=== PATIENT | male | born 1940 | race Caucasian/White ===

== ENCOUNTER 2018-08-12 06:55 | Day surgery (SDC) | payer OTHER ==
[2018-08-12] MEDS ORDERED: PROPOFOL 500 MG/50 ML EMU IV ONE (08:01)
[2018-08-12] MEDS ORDERED: LIDOCAINE HCL 1% MPF 30 SOL ONE (08:01)
[2018-08-12 09:11] VITALS: TEMP 97.3
[2018-08-12 09:23] VITALS: RESP 20
[2018-08-12 09:31] VITALS: BP 146/76; PULSE 70; O2SAT 96
[2018-08-12 11:32] LABS: PATHOLOGY SPEC OR BIOPSY REFER MAYO/MKTO PATH
== END 2018-08-12 09:38 | disposition home or self-care (01) | DRG 951 ==
LOC: SURG 06:55
PROVIDERS: ATTEND Internal Medicine Gastroenterology
DX: Z12.11 Encounter for screening for malignant neoplasm of colon (principal); K57.32 Diverticulitis of large intestine without perforation or abscess without bleeding; Z86.010 Personal history of colon polyps; K64.4 Residual hemorrhoidal skin tags; K63.9 Disease of intestine, unspecified; D12.3 Benign neoplasm of transverse colon; K63.5 Polyp of colon; K64.8 Other hemorrhoids
CPT/HCPCS: J2001; J2704

== ENCOUNTER 2018-09-28 08:24 | Emergency (ER) | payer OTHER ==
[2018-09-28] MEDS ORDERED: MORPHINE SULFATE 10 MG/ML SOL IV PRN (08:36)
[2018-09-28] MEDS ORDERED: ASPIRIN 81 MG CHEWABLE CTB PO STA (08:36)
[2018-09-28] MEDS ORDERED: SODIUM CHLORIDE 0.9% FLUSH 10 ML SOL IV PRN (08:36)
[2018-09-28] MEDS: NITROGLYCERIN 0.4 MG TAB SL PRN ×2 (08:41→09:24)
[2018-09-28] MEDS ORDERED: NITROGLYCERIN 0.4 MG TAB SL ONE (08:46)
[2018-09-28] MEDS ORDERED: ASPIRIN 81 MG CHEWABLE CTB ONE (08:46)
[2018-09-28 08:48] LABS: BASOPHILS % (AUTO) 1 % (0-3); EOSINOPHILS % (AUTO) 5 % (0-9); HEMATOCRIT 54 % (39-53); HEMOGLOBIN 17.3 gm/dl (13.5-17.7); LYMPHOCYTES % (AUTO) 25.7 % (10-50); MEAN CORPUSCULAR HEMOGLOBIN 30.6 pg (27.0-32.0); MEAN CORPUSCULAR HGB CONC 32.2 gm/dl (32.0-36.0); MEAN CORPUSCULAR VOLUME 95 fL (80-100); MONOCYTES % (AUTO) 6.7 % (0-12)
[2018-09-28 08:58] VITALS: TEMP 97.6
[2018-09-28 08:59] LABS: INR 1.02 (0.86-1.12)
[2018-09-28 09:05] LABS: CALCIUM 8.8 mg/dl (8.5-10.1); CARBON DIOXIDE 25.2 mEq/L (21-32); CREATININE 1.04 mg/dl (0.80-1.30); POTASSIUM 4.2 mMol/L (3.5-5.1); TROP I 0.054 ng/ml (0.000-0.056)
[2018-09-28 14:15] VITALS: BP 136/85; PULSE 48; RESP 15; O2SAT 96
== END 2018-09-28 11:20 | disposition home or self-care (01) | DRG 313 ==
LOC: ED 08:24
DX: R07.9 Chest pain, unspecified (principal)
CPT/HCPCS: 71045; 71260; 80048; 82550; 83880; 84484; 85025; 85378; 85610; 85730; 93005; 96365; 96374; 99282; 99285; Q9967; A9270-GY

== ENCOUNTER 2018-09-29 16:19 | Emergency (ER) | payer OTHER ==
[2018-09-29] MEDS ORDERED: ASPIRIN 81 MG CHEWABLE CTB ONE (16:23)
[2018-09-29] MEDS ORDERED: SODIUM CHLORIDE 0.9% FLUSH 10 ML SOL IV PRN (16:34)
[2018-09-29] MEDS ORDERED: ASPIRIN 81 MG CHEWABLE CTB PO ONE (16:35)
[2018-09-29] MEDS ORDERED: HEPARIN SODIUM 5000 U/ML SOL IV ONE (16:35)
[2018-09-29] MEDS ORDERED: HEPARIN SODIUM 5000 U/ML 25,000 U in DEXTROSE 250 ML 250 ML IV PRN (16:37)
[2018-09-29 16:39] LABS: HEMATOCRIT 56 % (39-53); HEMOGLOBIN 17.8 gm/dl (13.5-17.7); MEAN CORPUSCULAR HEMOGLOBIN 30.3 pg (27.0-32.0); MEAN CORPUSCULAR HGB CONC 31.6 gm/dl (32.0-36.0); MEAN CORPUSCULAR VOLUME 96 fL (80-100)
[2018-09-29] MEDS ORDERED: HEPARIN SODIUM 5000 U/ML SOL ONE ×2 (16:41)
[2018-09-29 16:53] VITALS: TEMP 98.6
[2018-09-29 16:56] LABS: BAND NEUTROPHILS % (MANUAL) 1 %; BASOPHILS % (MANUAL) 0 % (0-3); EOSINOPHILS % (MANUAL) 4 % (0-9); LYMPHOCYTES % (MANUAL) 22 % (10-50); MONOCYTES % (MANUAL) 3 % (0-12); NEUTROPHILS % (MANUAL) 70 % (37-80)
[2018-09-29 16:57] LABS: NORMAL RBCS PRESENT
[2018-09-29] MEDS ORDERED: NITROGLYCERIN 0.4 MG TAB SL ONE (17:12)
[2018-09-29] MEDS ORDERED: NITROGLYCERIN 0.4 MG TAB SL PRN (17:13)
[2018-09-29 17:18] VITALS: RESP 16; O2SAT 93
[2018-09-29 17:56] VITALS: BP 130/85; PULSE 70
== END 2018-09-29 17:39 | disposition short-term general hospital (02) | DRG 313 ==
LOC: ED 16:19
DX: R07.9 Chest pain, unspecified (principal)
CPT/HCPCS: 83880; 84484; 85007; 85027; 93005; 96365; 96374; 99285; 99291; J1644; A9270-GY

== ENCOUNTER 2018-11-12 17:29 | Emergency (ER) | payer OTHER ==
[2018-11-12] MEDS ORDERED: SODIUM CHLORIDE 0.9% FLUSH 10 ML SOL IV PRN (17:35)
[2018-11-12 17:39] LABS: BASOPHILS % (AUTO) 1 % (0-3); EOSINOPHILS % (AUTO) 20 % (0-9); HEMATOCRIT 46 % (39-53); HEMOGLOBIN 14.2 gm/dl (13.5-17.7); LYMPHOCYTES % (AUTO) 30.7 % (10-50); MEAN CORPUSCULAR HEMOGLOBIN 27.8 pg (27.0-32.0); MEAN CORPUSCULAR HGB CONC 31.1 gm/dl (32.0-36.0); MEAN CORPUSCULAR VOLUME 89 fL (80-100); NEUTROPHILS % (AUTO) 40.6 % (37-80)
[2018-11-12] MEDS ORDERED: ASPIRIN EC 81 MG PO SCH (17:39)
[2018-11-12 17:44] VITALS: TEMP 97.6
[2018-11-12 17:56] LABS: ALBUMIN 3.6 gm/dl (3.4-5.0); BILIRUBIN,TOTAL 0.4 mg/dl (0.2-1.0); CALCIUM 8.9 mg/dl (8.5-10.1); CREATININE 1.19 mg/dl (0.80-1.30); POTASSIUM 4.1 mMol/L (3.5-5.1); TOTAL PROTEIN 7.2 gm/dl (6.4-8.2); TROP I 0.025 ng/ml (0.000-0.056)
[2018-11-12 18:30] LABS: APPEARANCE,URINE Clear; BILIRUBIN,URINE NEGATIVE (NEGATIVE); COLOR,URINE Yellow; GLUCOSE, URINE (UA) NEGATIVE (NEGATIVE); KETONES,URINE NEGATIVE (NEGATIVE); LEUKOCYTE ESTERASE ,URINE NEGATIVE (NEGATIVE); NITRATE,URINE NEGATIVE (NEGATIVE); OCCULT BLOOD,URINE NEGATIVE (NEG-TRACE); UROBILINOGEN,URINE 0.2 (0.2-1.0 EU)
[2018-11-12] MEDS ORDERED: SODIUM CHLORIDE 0.9% 1000ML 1,000 ML IV ONE (18:50)
[2018-11-12 18:56] LABS: BACTERIA TRACE (< 1+); CRYSTALS NEGATIVE (0-3 AVE/HPF); EPITHELIAL CELLS NEGATIVE (SQUAMOUS); RBC,URINE NEGATIVE (0-3AV/HPF); WBC,URINE NEGATIVE (0-5AV/HPF)
[2018-11-12 19:05] VITALS: O2SAT 97
[2018-11-12 21:49] VITALS: BP 111/75; PULSE 66; RESP 19
== END 2018-11-12 21:45 | disposition home or self-care (01) | DRG 392 ==
LOC: ED 17:29
DX: R10.9 Unspecified abdominal pain (principal); D72.829 Elevated white blood cell count, unspecified
CPT/HCPCS: 71045; 74177; 80053; 81001; 82150; 84484; 85025; 93005; 96365; 96366; 99283; 99285; Q9967

== ENCOUNTER 2019-02-08 11:02 | Emergency (ER) | payer OTHER ==
[2019-02-08] MEDS ORDERED: ASPIRIN 81 MG CHEWABLE CTB PO STA (11:08)
[2019-02-08] MEDS ORDERED: SODIUM CHLORIDE 0.9% FLUSH 10 ML SOL IV PRN (11:08)
[2019-02-08] MEDS ORDERED: NITROGLYCERIN 0.4 MG TAB SL PRN (11:08)
[2019-02-08 11:19] LABS: BASOPHILS % (AUTO) 1 % (0-3); EOSINOPHILS % (AUTO) 4 % (0-9); HEMATOCRIT 46 % (39-53); HEMOGLOBIN 14.7 gm/dl (13.5-17.7); LYMPHOCYTES % (AUTO) 21.5 % (10-50); MEAN CORPUSCULAR HEMOGLOBIN 28.6 pg (27.0-32.0); MEAN CORPUSCULAR HGB CONC 31.9 gm/dl (32.0-36.0); MEAN CORPUSCULAR VOLUME 90 fL (80-100); MONOCYTES % (AUTO) 6.2 % (0-12); NEUTROPHILS % (AUTO) 68.2 % (37-80)
[2019-02-08 11:27] LABS: INR 1.22 (0.86-1.12)
[2019-02-08] MEDS ORDERED: MORPHINE SULFATE 10 MG/ML SOL IV ONE (11:35)
[2019-02-08] MEDS ORDERED: MORPHINE SULFATE 10 MG/ML SOL ONE (11:36)
[2019-02-08 11:42] LABS: ALBUMIN 3.3 gm/dl (3.4-5.0); BILIRUBIN,TOTAL 0.7 mg/dl (0.2-1.0); CALCIUM 8.3 mg/dl (8.5-10.1); CARBON DIOXIDE 25.3 mEq/L (21-32); CREATININE 1.1 mg/dl (0.80-1.30); POTASSIUM 3.6 mMol/L (3.5-5.1); TOTAL PROTEIN 6.4 gm/dl (6.4-8.2); TROP I 0.135 ng/ml (0.000-0.056)
[2019-02-08] MEDS ORDERED: LIDOCAINE HCL 1% MDV 50 ML SOL SC ONE (12:37)
[2019-02-08] MEDS ORDERED: LIDOCAINE HCL 1% MPF 30 SOL ONE (12:38)
[2019-02-08 12:50] VITALS: TEMP 97.7
[2019-02-08] MEDS ORDERED: HEPARIN SODIUM 5000 U/ML SOL IV ONE (12:53)
[2019-02-08] MEDS ORDERED: HEPARIN PREMIX 25,000 U/250 ML SOL IV SCH (13:00)
[2019-02-08] MEDS ORDERED: TDAP VACCINE 0.5 ML SUS IM ONE ×2 (13:38→14:35)
[2019-02-08] MEDS ORDERED: HEPARIN SODIUM 5000 U/ML SOL ONE ×2 (14:49→14:57)
[2019-02-08] MEDS ORDERED: ACETAMINOPHEN 325 MG PO PRN (15:50)
[2019-02-08] MEDS ORDERED: FENTANYL 100MCG/2ML SOL IV PRN (15:51)
[2019-02-08] MEDS ORDERED: FENTANYL 100MCG/2ML SOL ONE (16:10)
[2019-02-08] MEDS ORDERED: NITROGLYCERIN 5 MG/ML 50 MG in DEXTROSE 250 ML 250 ML IV PRN (17:59)
[2019-02-08] MEDS ORDERED: ONDANSETRON HCL 4 MG/2 ML SOL ONE (18:36)
[2019-02-08] MEDS ORDERED: ONDANSETRON HCL 4 MG/2 ML SOL IV ONE (18:39)
[2019-02-08 19:26] VITALS: BP 121/67; PULSE 90; RESP 19; O2SAT 92
== END 2019-02-08 19:11 | disposition short-term general hospital (02) | DRG 282 ==
LOC: ED 11:02
DX: I21.4 Non-ST elevation (NSTEMI) myocardial infarction (principal); R07.9 Chest pain, unspecified; R55 Syncope and collapse; S01.91XA Laceration without foreign body of unspecified part of head, initial encounter; W19.XXXA Unspecified fall, initial encounter
CPT/HCPCS: 12013; 36415; 70450; 71045; 71275; 80053; 82550; 82962; 83880; 84484; 85025; 85378; 85610; 85730; 90471; 90715; 93005; 96365; 96366; 96374; 96375; 99070; 99285; 99291; 99292; J1644; J2270; J2405; J3010; Q9967; A6402; J2001; J3490

== ENCOUNTER 2019-03-10 21:35 | Emergency (ER) | payer OTHER ==
[2019-03-10] MEDS ORDERED: PROCHLORPERAZINE EDISYLATE 5 MG/ML SOL IV ONE (22:05)
[2019-03-10] MEDS ORDERED: SODIUM CHLORIDE 0.9% IV ONE (22:06)
[2019-03-10] MEDS ORDERED: PROCHLORPERAZINE EDISYLATE 5 MG/ML SOL ONE (22:19)
[2019-03-10 22:33] LABS: HEMATOCRIT 42 % (39-53); HEMOGLOBIN 14.1 gm/dl (13.5-17.7); MEAN CORPUSCULAR HEMOGLOBIN 29.6 pg (27.0-32.0); MEAN CORPUSCULAR HGB CONC 33.7 gm/dl (32.0-36.0); MEAN CORPUSCULAR VOLUME 88 fL (80-100)
[2019-03-10] MEDS ORDERED: METOCLOPRAMIDE HYDROCHLORIDE 5 MG/ML SOL ONE (22:39)
[2019-03-10] MEDS ORDERED: METOCLOPRAMIDE HYDROCHLORIDE 5 MG/ML SOL IV ONE (22:40)
[2019-03-10 22:48] LABS: BAND NEUTROPHILS % (MANUAL) 6 %; BASOPHILS % (MANUAL) 0 % (0-3); EOSINOPHILS % (MANUAL) 3 % (0-9); LYMPHOCYTES % (MANUAL) 9 % (10-50); MONOCYTES % (MANUAL) 6 % (0-12); NEUTROPHILS % (MANUAL) 76 % (37-80); NORMAL RBCS PRESENT
[2019-03-10] MEDS ORDERED: LORAZEPAM 2 MG/ML SOL ONE (22:50)
[2019-03-10 22:51] LABS: ALBUMIN 3.6 gm/dl (3.4-5.0); BILIRUBIN,TOTAL 2.2 mg/dl (0.2-1.0); CALCIUM 8.6 mg/dl (8.5-10.1); CREATININE 1.15 mg/dl (0.80-1.30); CRP INFLAMMATORY 1.89 mg/dl (0.00-0.33); TOTAL PROTEIN 6.7 gm/dl (6.4-8.2); TROP I 0.112 ng/ml (0.000-0.056)
[2019-03-10] MEDS ORDERED: VANCOMYCIN HCL 500 MG PDS 1,500 MG in SODIUM CHLORIDE 0.9% 250 ML 250 ML IV ONE (22:51)
[2019-03-10] MEDS ORDERED: VANCOMYCIN HYDROCHLORIDE 500 MG PDS IV ONE (23:00)
[2019-03-10] MEDS ORDERED: PIPERACILLIN/TAZOBACT 3.375 GM 3.375 GM in SODIUM CHLORIDE 0.9% 100 ML 100 ML IV SCH (23:00)
[2019-03-10] MEDS ORDERED: LORAZEPAM 2 MG/ML 10ML MDV 2 MG/ML VIAL IV SCH (23:00)
[2019-03-10] MEDS ORDERED: PIPERACILLIN/TAZOBACT 3.375 GM PDS IV ONE (23:00)
[2019-03-10] MEDS ORDERED: SODIUM CHLORIDE 0.9% 1000ML 1,000 ML IV ONE (23:15)
[2019-03-10 23:41] LABS: SEDIMENTATION RATE 3 mm/hr (0-15)
[2019-03-11 00:22] LABS: APPEARANCE,URINE Slightly Cloudy; BILIRUBIN,URINE NEGATIVE (NEGATIVE); COLOR,URINE Yellow; GLUCOSE, URINE (UA) NEGATIVE (NEGATIVE); KETONES,URINE TRACE (NEGATIVE); LEUKOCYTE ESTERASE ,URINE NEGATIVE (NEGATIVE); NITRATE,URINE NEGATIVE (NEGATIVE); OCCULT BLOOD,URINE 2+ (NEG-TRACE)
[2019-03-11 00:26] LABS: BACTERIA NEGATIVE (< 1+); CRYSTALS NEGATIVE (0-3 AVE/HPF)
[2019-03-11 03:37] VITALS: TEMP 98.7
[2019-03-11 04:32] VITALS: O2SAT 96
[2019-03-11 04:33] VITALS: BP 139/75; PULSE 103; RESP 20
== END 2019-03-11 02:10 | disposition short-term general hospital (02) | DRG 871 ==
LOC: ED 21:35
DX: A41.9 Sepsis, unspecified organism (principal); I21.4 Non-ST elevation (NSTEMI) myocardial infarction; I10 Essential (primary) hypertension
CPT/HCPCS: 36415; 70450; 71045; 74177; 80053; 81001; 84484; 85007; 85027; 85651; 87040; 93005; 96365; 96366; 96374; 96375; 99284; 99291; J0780; J2060; J2543; J2765; J3370; Q9967; A6232